=== PATIENT | female | born 1985 | race Caucasian/White ===

== ENCOUNTER 2024-06-15 18:19 | Emergency (ER) | payer OTHER, SELFPAY ==
--- NOTE | ~2024-06-15 | CT_ITS ---
EXAMINATION: CT brain wo con DATE: 06/15/2024 21:12 INDICATION: headache and HTN . TECHNIQUE: Computed tomography (CT) of the head was performed without intravenous contrast. The mA wa s adjusted according to patient size. Iterative reconstruction technique was employed. The dose-lengt h product was 605.33 mGy-cm. COMPARISON: None. FINDINGS: No acute intracranial hemorrhage or extra-axial fluid collection. No hydrocephalus, mass, or herniation. No acute ischemic infarct. Unremarkable dural venous sinus attenuation. No acute osseous abnormality. The aerated spaces are clear. IMPRESSION: No acute intracranial process. Reviewed, dictated and finalized at location K.
[2024-06-15 18:21] VITALS: BP 184/97; PULSE 93; RESP 16; TEMP 37; O2SAT 100
--- OUTSIDE RECORDS SUMMARY | 2024-06-15 18:22 | XMS_ITS | Clinical Summary ---
Author Organization [facility] Address [address] [place] [address] Care Team Providers Care Residential Treatment Counselor Name Role Phone Anibal Nieves MD Primary Care Provider [phone] Marcelo Garza MD Unavailable [phone] Allergies No known active allergies Medications linaCLOtide (LINZESS) 145 mcg capsule Take 1 capsule (145 mcg total) by mouth daily 90 capsule 5 07/23/19 25 Active nitrofurantoin monohydrate (MACROBID) 100 mg capsuleIndicatio ns:Urinary tract infection with hematuria, site unspecified Take 1 capsule (100 mg total) by mouth 2 (two) times a day for 5 days 10 capsule 5 05/29/19 25 Active Problems Problem Noted Date Diagnosed Date Chronic constipation 04/23/2024 Tension headache 05/16/2022 Assessment & Plan (02/20/2024 4:26 PM AEROSPACE ASSEMBLER): Patient now describes her headaches are definitely related to her menstrual cycle. She has discussed this with her abalone processor. Taken pzzo-gek-nkntzim medications with partial success does not remember the name of the medication other was for migraines. Patient was given prescription for sumatriptan in the past me. Patient did not take the medication she had a fear children were take her medicine by accident. Advised this patient specifically get Excedrin migraine [id number]. I emphasized that this patient take the medication at 1st onset of warning of headache this makes a difference on success with the medication if she waits too long medicines less likely to abort the headache. She is to contact me this therapy fails Assessment & Plan (02/06/2023 12:27 PM AEROSPACE ASSEMBLER): Headaches very well controlled patient is tolerating medications no change in therapy Assessment & Plan (05/16/2022 5:41 PM CDT): Patient describes episodic tension headaches with neck tightness stiffness and headache her abalone processor gave her medication she does not recall the name. Sometimes will take Tylenol for the headache with it working approximate 30% of the time. However she only takes the Tylenol after headache is been going on for many hours. She has a fear that she is going to have his significant consequences from taking medications for headaches.. Her that is reasonably safe to take Excedrin migraine and Tylenol for headaches. And she would suffer last if she would take the meds at onset of symptoms. Neurological is l exam completely normal Constipation 01/26/2022 Assessment & Plan (02/20/2024 4:24 PM AEROSPACE ASSEMBLER): Linzess as effective in controlling constipation last prescriptions written by GI Dr. Milly Ahmadi. Assessment & Plan (02/06/2023 12:25 PM AEROSPACE ASSEMBLER): Patient reports constipation well controlled on present medication from GI Assessment & Plan (10/13/2022 8:20 AM CDT): Chronic constipation, can go weeks without BM, was previously taking linzess 72 mcg once a week Used to take daily that helped with constipation but not pain Tried chewable dulcolax, stool softener, MiraLax with no relief Ibuprofen as needed for migraine about a few days a month No known family history of colon cancer, liver disease, inflammatory bowel disease, or other GI pathologies Labs from 05/2021 showed normal CBC CMP and TSH KUB from 02/2022 showed moderate stool burden No previous endoscopies Since last visit had normal CT abdomen pelvis. Often forgets to take Linzess 72 mcg daily. When she does take it feels like it does not make her go everyday and makes her feel more bloated instead. Takes Gas-X with good relief. Plan Chronic idiopathic vs IBS-C with no alarm features. rectal exam showed no findings of pelvic floor dyssynergia Will increase Linzess to 145 mcg daily, strongly encouraged patient to try to remember to take it daily. Assessment & Plan (07/14/2022 2:09 PM CDT): Chronic constipation, can go weeks without BM, currently taking linzess 72 mcg once a week Used to take daily that helped with constipation but not pain Tried chewable dulcolax, stool softener, MiraLax with no relief Ibuprofen as needed for migraine about a few days a month No known family history of colon cancer, liver disease, inflammatory bowel disease, or other GI pathologies Labs from 05/2021 showed normal CBC CMP and TSH KUB from 02/2022 showed moderate stool burden No previous endoscopies Plan Chronic idiopathic vs IBS-C with no alarm features. rectal exam showed no findings of pelvic floor dyssynergia Encouraged patient to start taking Linzess 72 mcg daily given good response previously Assessment & Plan (05/16/2022 5:42 PM CDT): Patient has developed constipation last visit with me she had constipation gave her Linzess 72 mg at work within 2-3 days she is taking medicine periodically in his helped her. Out of samples in his symptoms returned gave her more samples of Linzess 72 mg and a prescription Assessment & Plan (03/03/2022 12:25 PM AEROSPACE ASSEMBLER): Symptoms improved temporarily. Patient strain have bowel movements abdominal discomfort. Abdomen some slight distention suprapubic area. KUB was done is show considerable amount of feces present so shoulder large bladder distention. Concerned about bladder outlet obstruction . Radiologist suggests ultrasound of her heart this is being performed on today's date 03/03/2022. Prior to the knowledge of the changes in the bladder patient was given the medication Linzess 72 mg 1 tablet daily Assessment & Plan (01/26/2022 12:10 PM AEROSPACE ASSEMBLER): Patient started having abdominal bloating lower abdomen pain in September of 2021 she does not have pain without the bloating bloating associated with constipation ever time she has taken Dulcolax it is helped her on some occasions. Once she is a bowel movement all of her symptoms go away. Patient has had no blood in his stool. Nausea no vomiting no changes in bladder function. No weight loss. Patient is a handout from up-to-date today regarding constipation was talks about diet and fiber will softeners and therapy. Have not patient review the information to correct changes in her diet she does not get well he get back in contact with me.. There is a small chance she may need a colonoscopy I doubt at age 36. Her exam is unremarkable than I have dementia in his bloated today the bloating goes constipation in his transient once a week to every 2 weeks. Chronic intractable headache 05/21/2020 Assessment & Plan (02/06/2023 12:26 PM AEROSPACE ASSEMBLER): Headaches very well controlled patient is tolerating medications no change in therapy Assessment & Plan (05/21/2020 5:09 PM CDT): Patient's recurring headaches this is been going on for several years at least 6 years. She uses Tylenol a works about 40% of the time. He is not interested in taking an additional medicine. She has no other symptoms with the headache. Rarely do they stop her from caring out routine activities of daily living.. Headaches are no worse or different than 3 years ago. Encounter for preventive health examination 04/14 Overview (05/24/2020): Added automatically from request for surgery [id number] Assessment & Plan (02/20/2024 4:23 PM AEROSPACE ASSEMBLER): History and physical completed patient's health risk assessment health maintenance reviewed and addressed. Assessment & Plan (02/06/2023 12:29 PM AEROSPACE ASSEMBLER): History and physical completed patient's health risk assessment health maintenance reviewed in addressed. Patient has made significant improvement in the past year with respect to headaches and constipation problems. Smoking 1/2 pack a day or less 06/13/2019 History of gestational hypertension Resolved Problems Problem Noted Date Diagnosed Date Resolved Date Acute non-recurrent maxillary sinusitis 11/15/2023 05/23/2024 Assessment & Plan (11/15/2023 9:27 AM CDT): Acute, symptoms for approx 1 month. Exam findings consistent with maxillary sinusitis. Will Rx doxycycline as instructed. You may take a cough suppressant to calm your cough (Robitussin, delsym, or nyquil). If your cough is productive or you have tight chest congestion with thick mucus- you can use a cough expectorant like Mucinex. Benadryl/Zyrtec/monika can be used to dry up a runny nose or post nasal drip. Sudafed can help with nasal congestion (no more than 5 days due to rebound congestion). Flonase or Nasacort will also help with sinus pressure and nasal drip both. Tylenol/Ibuprofen as needed for pain. Increase fluids (water) Cool mist humidifier at night Use sinus rinses to help flush bacteria and help with congestion. Encouraged honey, marshmallows, gelatin, or chloraseptic to help coat throat. Call with any worsening or persistent symptoms. Epigastric abdominal pain 07/14/2022 Assessment & Plan (10/13/2022 8:17 AM CDT): Epigastric and lower abdominal pain comes out of nowhere, feels like something in there bulging out and moving around Lying on stomach or moving around trigger pain Gets really bad when constipated, better after bm No association with eating Some acid reflux with tums as needed, no dysphagia or odynophagia Since last visit had normal CT A/P, often forgets to take linzess and when she does take it feel like it doesn't always make her go and would just get really bloated instead. Takes gas x as needed with some relief. Spicy foods make her bloating worse. Plan I suspect her epigastric and lower abdominal pain could be related to IBS constipation. Will increase Linzess to 145 mcg daily, and encouraged patient to try to remember to take it daily Assessment & Plan (07/14/2022 2:08 PM CDT): Epigastric and lower abdominal pain comes out of nowhere, feels like something in there bulging out and moving around Lying on stomach or moving around trigger pain Gets really bad when constipated, better after bm No association with eating Some acid reflux with tums as needed, no dysphagia or odynophagia I suspect her epigastric and lower abdominal pain could be related to either abdominal hernia or IBS constipation. Plan Check CT abdomen pelvis Start daily Linzess Lower abdominal pain 07/14/2022 023 Generalized abdominal pain 06/14/2022 1 04/09/2022 Assessment & Plan (06/14/2022 9:07 PM CDT): Symptoms on and off for the last 4 months. Goes back and forth between diarrhea and constipation while taking linzess PRN. When symptoms first started they were predominantly constipation. No melena. KUB 03/02/22 showed moderate constipation, no recent CT abdomen in chart. Diffuse tenderness as noted above. No urinary or BEVEL POLISHER symptoms. Likely needs colonoscopy/EGD, will refer to GI. Encouraged acid reducers, continue linzess PRN. Discussed soluble VS insoluable sources of fiber-avoid nuts, beans, broccoli, cauliflower, green beans, potatoes, and bran. Ok to use Metamucil. Stay hydrated. Educated on natural laxatives such as prunes, apple juice, smooth move tea, coffee, and probiotics. Discussed low acid diet: avoid soda, sugar substitutes, vinegar, pickles, citrus, tomatoes, coffee, and alcohol. Stay hydrated. White coat syndrome with hig h blood pressure but without hypertension 05/16/2022 02/20/2024 Assessment & Plan (05/16/2022 5:39 PM CDT): Patient had a elevated blood pressure recent gynecologic visits. I reviewed this patient's chart with her showing her blood pressure readings going back 5 years approximately 4 readings out of 20 were slightly elevated. At this time no medications indicated all occasions she was having some pain and discomfort when her blood pressure was elevated. Acute cystitis without hematuria 08/04/2021 01/26/2022 Assessment & Plan (08/04/2021 11:34 AM CDT): Patient's symptomatic approximate 6 days. Complains of urgency frequency and dysuria. No fever no chills no flank pain. She does have some suprapubic pain at the time urination. Patient's exam is unremarkable she is in no distress. Vitals excellent. Plans at this time urinalysis start this patient on Bactrim ds. Hospital discharge follow-up 06/03/2021 08/29/2021 Assessment & Plan (06/03/2021 4:17 PM CDT): Patient is seen in emergency room yesterday because of elevated blood pressure . Patient's felt different home and blood pressure begin significant elevations at home but by the her blood pressure at the emergency room down did not sites treatment. She feels well at this time. Patient is concerned that she may be having elevated blood pressure this time her menses. Recommend and monitoring her blood pressure and discuss with catalytic converter operator helper if this turns out to be a problem. She is not on control pills. Essential hypertension 05/21/202001/26 Assessment & Plan (11/26/2020 6:06 PM CDT): Hypertension is always been gestational. Her last deliver close to a year ago. The medication she feels lightheaded insect I discontinued nifedipine 30 mg per day advised patient weight about 2 3 weeks start get some blood pressure readings random mail those into me. Assessment & Plan (05/21/2020 5:12 PM CDT): Blood pressure is well controlled 124/82 I reviewed this patient's chart she has had consistent well controlled blood pressure medications. Patient advised me she had hypertension with on every occasion. Blood pressure with a ventrally go down within 6 weeks. Last her blood pressure is not return to normal. He has been on nifedipine 30 mg daily for several months she has no side effects from the medication.. Patient is given handout sheet from up-to-date today regarding hypertension the medicine is effective and tolerable no change in therapy. Recent laboratory studies from the ER sufficient I do not need to repeat labs today. This patient has had a cardiac workup in the past for nonspecific chest pain including cardiac catheterization as well as an echocardiogram both which were normal. I am recommending a fasting lipid profile is some time in the future. Patient has to contact insurance company regarding coverage. [facility] care 05/12/2020 Overview (05/12/2020): Added automatically from request for surgery [id number] Assessment & Plan (01/26/2022 12:03 PM AEROSPACE ASSEMBLER): History and physical completed patient's health risk assessment health maintenance reviewed in addressed. Patient's only health concerns is constipation please see assessment and plans. Assessment & Plan (05/21/2020 5:07 PM CDT): History and physical completed health risk assessment health maintenance reviewed in addressed patient's chart is reviewed no laboratory studies indicated this time please see assessment and plan Preeclampsia in period 12/19/2019 07/02/2020 GBS (group B Streptococcus c arrier), +RV culture, currently 12/01/2019 12/12/2019 H/O delivery, currently 06/13/2019 01/23/2020 Threatened in early 05/12/2019 10/03/2019 Encounter for sterilization 01/02/2018 05/12/2019 Overview (01/02/2018): Added automatically from request for surgery [id number] Positive GBS test 10/23/2017 11/02/2017 No pathologic diagnosis 10/18/201209/13 Overview (05/17/2016): No diagnosis Vaginal delivery 01/23/2020 38 weeks gestation of 05/12/2019 37 weeks gestation of 01/23/2020 Encounters Date Type Department Care Team Description 06/12/2024 7:38 AM CDT Anesthesia Event [address] [address] Cherelle Villasenor MD Reynolds, Ethan Emerson, MD 06/12/2024 7:30 AM CDT - 06/12/2024 8:00 AM CDT Surgery [address] [address] Mar Ahmadi MD COLON REMOVAL SNARE 06/12/2024 7:04 AM CDT - 06/12/2024 8:44 AM CDT Hospital Encounter [address] [address] Mar Ahmadi MD Chronic constipation Discharge Disposition: Discharge to home or self care 06/10/2024 8:30 AM CDT - 06/10/2024 11:59 AM CDT Emergency [facility] Emergency Department [address] [place] [address] Ravi Winslow MD Other migraine without status migrainosus, intractable (Primary Dx) Discharge Disposition: Discharge to home or self care 05/23/2024 2:00 PM CDT Lab [facility] [address] [facility] [address] [place] [address] Urinary tract infection with hematuria, site unspecified 05/23/2024 1:30 PM CDT Office Visit [facility] [address] [facility] [address] [place] [address] Leyla Sung NP Urinary tract infection with hematuria, site unspecified (Primary Dx) 04/28/[address] [facility] Gastroenterology at [address] [place] [phone] Johnna Ramírez LPN 04/23/2024 2:30 PM CDT Office Visit [facility] Gastroenter[facility] at [address] [place] [phone] Asia Humphrey PA Chronic constipation (Primary Dx) 04/23/[address] [facility] Gastroenter[facility] at [address] [place] [phone] Chichi Maria MA from Last 3 Months Immunizations Immunization Administration Dates Next Due DTP 09/28/1989, 8,03/03/1987,12/31 Hep B, Adolescent or Pediatric 10/02/1996 Influenza, Quadrivalent, Spl it, Preservative Free, Intramuscular 11/04/2017 Influenza, Unspecified 05/23/2024(Deferr ed: Patient Refused),11/13/2022(Deferred: Patient Refused) MMR 11/30/1992,08/18/1986 OPV 09/28/1989, 8,03/03/1987,12/31 Tdap 10/24/2019,08/24/2017 Surgical History Surgery Date Site/Laterality Comments OTHER SURGICAL HISTORY 02/13/2004 - 02/11/2005 : OTHER SURGICAL HISTORY 02/13/2012 - 02/11/2013 : CARDIAC CATHETERIZATION SALPINGECTOMY 06/16/2020 Bilateral COLONOSCOPY 06/12/2024 Medical History Medical History Date Comments Hx Other Medical 2004 ; Outc ome: 5 lb(s) 9 oz Male Hx Other Medical 2017 Hx Other Medical 2012 manag ement; Outcome: Live 4 para 4 Motion sickness Anxiety Migraines History of chicken pox Family History Medical History Relation Name Comments Hypertension Father Tahir Hypertension; Hyperlipidemia Mother Meli Hypertension Mother Meli Relation Name Status Comments Father Tahir Mother Meli Social History Tobacco Use Types Packs/Day Years Used Date Smoking Tobacco: Every Day Cigarettes 0.4 22.3 Started: 02/12/2002 Smokeless Tobacco: Never Tobacco Cessation:Ready to Q uit: Not Asked; Counseling Given: Not Answered Comments:Smoking History Packs/day: 0 Packs Alcohol Use Standard Drinks/Week Comments No 0 (1 standard drink = 0.6 oz pur e alcohol) AUDIT-C Answer Date Recorded Q1: How often do you have a drink containing alcohol? Never 06/12/2024 Q2: How many drinks containi ng alcohol do you have on a typical day when you are drinking? Patient does not drink Q3: How often do you have si x or more drinks on one occasion? Never 06/12/2024 PHQ-2 Answer Date Recorded PHQ-2 Total Score (If total score is 3 or more points, staff should administer the PHQ-9) 0 05/23/2024 Personal Safety Answer Date Recorded Have you ever been in or are you currently in a harmful physical or emotional relationship or is someone making you feel afraid or unsafe? Denies 06/12/2024 Comments No Sex and Gender Information Value Date Recorded Sex Assigned at Not on file Legal Sex Female 7:33 PM AEROSPACE ASSEMBLER Gender Identity Not on file Sexual Orientation Not on file Obstetrics History Para Term AB IAB SAB Ectopic Multiple Livin g Live Births 4 4 2 2 0 0 0 0 0 4 4 Date Outcome GA Total Labor Labor/2nd/3rd Weight Sex Type Anes PTL Lakisha A1 A5 Name Clin 2004 35w 0d 2.523 kg (5 lb 9 oz) M Vag-S pont Epidur al Y Livin g Saran chun Complications:Pre eclampsia 2012 36w 0d 1.984 kg (4 lb 6 oz) M Vag-S pont Epidur al Y Livin g Yohan Complications:Pre eclampsia 2017 Term 38w 1d 2.353 kg (5 lb 3 oz) M Vag-S pont Epidur al N Livin g [place] Complications:Pre eclampsia 2019 Term 37w 3d 1h 22m 0h 40m/0h 05m/0h 37m 2.697 kg (5 lb 15.1 oz) F Vag-S pont Local N Livin g 9 9 SUKHDEEP TRAORE, Rebel Keller MD Complications:Precipitous La bor (<3 hours) Delivery [facility] Last Filed Vital Signs Vital Sign Reading Time Taken Comments Blood Pressure 128/89 06/12/2024 8:37 AM CDT Pulse 76 06/12/2024 8:37 AM CDT Temperature 36.9 C (98.5 F) 06/12/2024 8:37 AM CDT Respiratory Rate 18 06/12/2024 8:37 AM CDT Oxygen Saturation 100% 06/12/2024 8:37 AM CDT Inhaled Oxygen Concentration - - Weight 52.2 kg (115 lb) 06/12/2024 7:12 AM CDT Height 154.9 cm (5' 1 ) 06/12/2024 7:12 AM CDT Body Mass Index 21.73 06/12/2024 7:12 AM CDT Plan of Treatment Health Maintenance Due Date Last Done Comments Pneumococcal vaccine <65 (1 of 2 - PCV) 2004 Influenza Vaccine (Season Ended) 2024 11/04/2017 Regular Well Visit/Exam 18-64 02/18/2025 02/19/2024, 02/06/2023, 05/08/2022, Additional history exists Cervical Cancer Screening 05/08/20252022, 06/13/2019, 04/27/2017, Additional history exists Depression Screening 05/23/2025 05/23/2024, 02/19/2024, 02/08/2024, Additional history exists DTaP/Tdap/Td Vaccine (7 - Td or Tdap) 10/23/2029 10/24/2019, 08/24/2017, 09/28/1989, Additional history exists Hepatitis B Screening Completed 10/02/1996 Hepatitis C Screening Completed 08/12/2019 , 05/17/2017, 04/12/2012 HPV Vaccines Aged Out No longer eligi ble based on patient's age to complete this topic Procedures Procedure Name Priority Date/Time Associated Diagnosis Comments COLON REMOVAL SNARE 06/12/2024 7 :31 AM CDT Chronic constipation COLONOSCOPY 06/12/2024 7:08 AM CDT EGFR STAT 06/10/2024 10:50 AM CDT DIFFERENTIAL AUTO STAT 06/10/2024 10: 50 AM CDT COMPREHENSIVE METABOLIC PANEL STAT 06/10/2024 10:50 AM CDT CBC WITH AUTO DIFFERENTIAL STAT 06/10/2024 10:[address] HEAD WO CONTRAST ED 06/10/2024 1 0:[address] CERVICAL SPINE WO CONTRAST ED 06/10/2024 10:03 AM CDT URINALYSIS AND REFLEX TO MICROSCOPIC AND CULTURE Routine 05/23/2024 1:58 PM CDT Urinary tract infection with hematuria, site unspecified PAP AND HIGH RISK HPV, REFLEX TO GENOTYPING Routine 05/08/2022 11:34 AM CDT Encounter for gynecological examination with abnormal finding HEPATITIS C ANTIBODY Routine 08/12/2019 11:52 AM CDT 11 weeks gestation of from Last 3 Months or Most Recently Relevant to Health Maintenance Results * Colonoscopy (06/12/2024 7:08 AM CDT) Anatomical Region Laterality Modality Other Narrative Procedure Note Tu, Yixi, MD - 06/12/2024 7:08 AM CDT [facility] Patient Name: Marry Lowry Procedure Date: 06/12/2024 7:08 AM Date of : 1985 Admit Type: Outpatient Age: 39 Gender: Female Attending MD: Mar Ahmadi M.D. Room: [facility] ENDOSCOPY ROOM 2 Note Status: Finalized Patient Profile: This is a 39 year old female hx of tobacco use here for colonoscopy to evaluate for chronicconstipation. No family hx of colitis or colon cancer. Procedure: Colonoscopy Indications: This is the patient's first colonoscopy,Constipation Referring MD: Anibal Nieves M.D. Providers: Mar Ahmadi M.D. Impression: - Two 4 to 5 mm polyps in the rectum, removed witha cold snare. Resected and retrieved. - External and internal hemorrhoids. - Tortuous colon. Recommendation: - Patient has a contact number available for emergencies. The signs and symptoms of potential delayed complications were discussed with thepatient. Return to normal activities tomorrow. Written discharge instructions were provided to thepatient. - Discharge patient to home (with escort). - High fiber diet. - Continue present medications. - Await pathology results. - Repeat colonoscopy with 2 day prep forsurveillance based on pathology results. - Return to GI clinic as previously scheduled. Medicines: Monitored Anesthesia Care Complications: No immediate complications. Estimated Blood Loss: Estimated blood loss was minimal. Procedure: Pre-Anesthesia Assessment: - Prior to the procedure, a History and Physicalwas performed, and patient medications and allergieswere reviewed. The patient is competent. The risks and benefits of the procedure and the sedation optionsand risks were discussed with the patient. Allquestions were answered and informed consent was obtained. Patient identification and proposed procedure were verified by the physician, the automobiles salesperson and the oven technician in the endoscopy suite. Mental Status Examination: normal. Prophylactic Antibiotics: The patient does not require prophylactic antibiotics. Prior Anticoagulants: The patient has taken no anticoagulant or antiplatelet agents. Afterreviewing the risks and benefits, the patient was deemed in satisfactory condition to undergo the procedure.The anesthesia plan was to use monitored anesthesiacare (MAC). Immediately prior to administration of medications, the patient was re-assessed foradequacy to receive sedatives. The heart rate, respiratory rate, oxygen saturations, blood pressure, adequacyof pulmonary ventilation, and response to care were monitored throughout the procedure. The physical status of the patient was re-assessed after the procedure. The benefits, risks and alternatives of theprocedure and sedation were discussed and informed consentwas obtained. All questions were answered. Please referto the signed informed consent document in the medical record. The bowel preparation used was Miralax via split dose instruction. The bowel preparation usedwas bisacodyl tablets via split dose instruction. The scope was passed under direct vision. The Pediatric Colonoscope [id number] was introducedthrough the anus and advanced to the the cecum, identifiedby appendiceal orifice and ileocecal valve. The bowel preparation used was Miralax via extended prep with split dose instruction. The colonoscopy wasperformed without difficulty. The patient tolerated the procedure well. The quality of the bowelpreparation was adequate Bowel prep was administered using asplit dose. Findings: The perianal and digital rectal examinations were normal. Two sessile polyps were found in the rectum. The polyps were 4 to 5mm in size. These polyps were removed with a cold snare. Resection and retrieval were complete. External and internal hemorrhoids were found during endoscopy. The colon (entire examined portion) was tortuous. Mar Ahmadi M.D. 06/12/2024 8:17:13 AM Number of Addenda: 0 Note Initiated On: 06/12/2024 7:08 AM Procedure Code(s): --- Professional --- 99317, Colonoscopy, flexible; with removal of tumor(s), polyp(s), or other lesion(s) by snare technique --- Technical --- 44784, Colonoscopy, flexible; with removal of tumor(s), polyp(s), or other lesion(s) by snare technique Diagnosis Code(s): --- Professional --- D12.8, Benign neoplasm of rectum K64.8, Other hemorrhoids K59.00, Constipation, unspecified --- Technical --- D12.8, Benign neoplasm of rectum K64.8, Other hemorrhoids K59.00, Constipation, unspecified CPT copyright 2020 [employer]. All rights reserved. The codes documented in this report are preliminary and upon medical billing coder reviewmay be revised to meet current compliance requirements. Recognized by the [employer] for promoting quality in endoscopy Mar Ahmadi MD ENDOSCOPY PROCEDURES Final Resul t * eGFR (06/10/2024 10:50 AM CDT) eGFR >90 >=60 mL/min/1. 73 m2 Comment: Interpretive Data Reference Interval Normal >/= 90 mL/min/1.73m2 Mildly decreased* 60 - 89 mL/min/1.73m2 Mildly to moderately decreased 45 - 59 mL/min/1.73m2 Moderately to severely decreased 30 - 44 mL/min/1.73m2 Severely decreased 15 - 29 mL/min/1.73m2 Kidney Failure < 15 mL/min/1.73m2 *Relative to young adult level Estimated glomerular filtration rate is determined by the 2020 CKD-EPI equation recommended by the National [employer] (A Unifying Approach to GFR Estimation: Recommendations of the NKF-ASK Task Force on Reassessing the Inclusion of Race in Diagnosing Kidney Disease, JASN 2020). The CKD-EPI equation should not be used for patients with unstable renal function and has not been validated in children and those over 70. Current interpretive data was last reviewed 2020. Blood 06/10/2024 10:5 0 AM CDT 06/10/2024 11:01 AM CDT us Ravi Winslow MD LAB BLOOD ORDERABLES Final Res ult [facility] [place] [address] * Differential, auto (06/10/2024 10:50 AM CDT) Neutrophil abs 6.08 1.50 - 6.50 K/cumm Imm gran abs 0.03 0.00 - 0.10 K/cumm [facility] Lymphocyte abs 2.25 0.80 - 3.30 K/cumm [facility] ([place]) Monocyte abs 0.61 0.20 - 0.80 K/cumm [facility] ([place]) Eosinophil abs 0.15 0.00 - 0.50 K/cumm [facility] ([place]) Basophil abs 0.06 0.00 - 0.10 K/cumm [facility] ([place]) Neutrophil pct 66.3 % [facility] Comment: Interpretive Data Percent cell count reference ranges are not reported, since discordance with absolute values may lead to misinterpretation of CBC data. Current Interpretive Data was last revised on 2017. Imm gran pct 0.3 % [facility] ([place]) Comment: Interpretive Data Percent cell count reference ranges are not reported, since discordance with absolute values may lead to misinterpretation of CBC data. Current Interpretive Data was last revised on 2017. Lymphocyte pct 24.5 % [facility] ([place]) Comment: Interpretive Data Percent cell count reference ranges are not reported, since discordance with absolute values may lead to misinterpretation of CBC data. Current Interpretive Data was last revised on 2017. Monocyte pct 6.6 % [facility] ([place]) Comment: Interpretive Data Percent cell count reference ranges are not reported, since discordance with absolute values may lead to misinterpretation of CBC data. Current Interpretive Data was last revised on 2017. Eosinophil pct 1.6 % [facility] ([place] Comment: Interpretive Data Percent cell count reference ranges are not reported, since discordance with absolute values may lead to misinterpretation of CBC data. Current Interpretive Data was last revised on 2017. Basophil pct 0.7 % [facility] ([place]) Comment: Interpretive Data Percent cell count reference ranges are not reported, since discordance with absolute values may lead to misinterpretation of CBC data. Current Interpretive Data was last revised on 2017. Blood 06/10/2024 10:5 0 AM CDT 06/10/2024 11:01 AM CDT us Ravi Winslow MD LAB BLOOD ORDERABLES Final Res ult [facility] ([place]) [facility] [place] [address] * CBC with auto differential (06/10/2024 10:50 AM CDT) WBC 9.18 3.80 - 9.90 K/cumm Hgb 13.8 11.9 - 15.5 g/dL [facility] Hct 40.7 35.6 - 45.5 % [facility]) Plt 264 150 - 400 K/cumm [facility] ([place]) MPV 11.0 9.1 - 12.3 fL [facility] RBC 4.62 3.90 - 5.20 M/cumm [facility] ([place]) MCV 88.1 81.3 - 96.4 fL [facility] MCH 29.9 27.1 - 33.3 pg [facility] MCHC 33.9 32.3 - 35.7 g/dL [facility] RDW CV 12.5 11.1 - 14.9 % [facility] RDW SD 40.3 35.7 - 48.1 fL [facility]) NRBC abs 0.00 0.00 - 0.01 K/cumm [facility]) Blood 06/10/2024 10:5 0 AM CDT 06/10/2024 11:01 AM CDT us Ravi Winslow MD LAB BLOOD ORDERABLES Final Res ult [facility] [place] [address] * (ABNORMAL) Comprehensive metabolic panel (06/10/2024 10:50 AM CDT) Sodium 139 135 - 145 mmol/L Potassium, pl 4.0 3.3 - 4.9 mmol/L [facility] Chloride 104 97 - 110 mmol/L [facility] CO2 23 22 - 32 mmol/L [facility] Anion gap 12 2 - 15 mmol/L [facility]) BUN 6 6 - 25 mg/dL [facility]) Creatinine 0.46(L) 0.60 - 1.10 mg/dL [facility] Glucose 93 70 - 199 mg/dL [facility] ([place] Comment: Interpretive Data Fasting glucose >/= 126 mg/dl is diagnostic for diabetes. Fasting is defined as no caloric intake for at least 8 hours. Fasting glucose between 100 mg/dl to 125 mg/dl is diagnostic of prediabetes. In a patient with classic symptoms of hyperglycemia or hyperglycemic crisis, a random glucose >/= 200 mg/dl is diagnostic for diabetes. In the absence of unequivocal hyperglycemia, results should be confirmed by repeat testing. The classification and Diagnosis of Diabetes Diabetes Care 202; 46: S19-S40. Current interpretive data was last revised 2022. Calcium 9.1 8.5 - 10.3 mg/dL [facility] Bilirubin, total 0.3 0.1 - 1.2 mg/dL [facility] ([place]) Protein, pl 7.6 6.5 - 8.5 g/dL [facility]) Albumin 4.5 3.5 - 5.0 g/dL [facility]) Alk phos 85 40 - 130 Units/L [facility]) ALT 19 7 - 45 Units/L [facility] AST 17 10 - 45 Units/L [facility] ([place]) Comment:Slightly Hemolyzed S pecimen Blood 06/10/2024 10:5 0 AM CDT 06/10/2024 11:01 AM CDT us Ravi Winslow MD LAB BLOOD ORDERABLES Final Res ult [facility] ([place]) [facility] [place] [address] * CT Cervical Spine WO Contrast (06/10/2024 10:03 AM CDT) Anatomical Region Laterality Modality Spine N/A Computed Tomogra phy 06/10/2024 10:1 9 AM CDT Narrative 06/10/2024 10:22 AM CDT EXAM DESCRIPTION: CT CERVICAL SPINE WO CONTRAST REASON FOR STUDY: Neck pain with radiculopathy Patient is complaining of headaches for 3 days TECHNIQUE: Axial images through the cervical spine with sagittal and coronal reformatted images. Automated exposure control was used as a dose optimization technique for this examination. COMPARISON: None available FINDINGS: ALIGNMENT: Normal. VERTEBRAE: No fracture. Vertebral body heights well-maintained. DISCS: Disc heights well-maintained. HARDWARE: None in the spine. INDIVIDUAL LEVELS: C1-C2: No significant osseous spinal stenosis. C2-C3: No significant osseous spinal stenosis or neural foraminal stenosis. C3-C4: No significant osseous spinal stenosis or neural foraminal stenosis. C4-C5: No significant osseous spinal stenosis or neural foraminal stenosis. C5-C6: No significant osseous spinal stenosis or neural foraminal stenosis. C6-C7: No significant osseous spinal stenosis or neural foraminal stenosis. C7-T1: No significant osseous spinal stenosis or neural foraminal stenosis. UPPER THORACIC: Incompletely imaged. No significant osseous spinal stenosis or osseous neural foraminal stenosis. SKULL BASE: No significant finding. LUNG APICES: No significant abnormality. NECK SOFT TISSUES: No significant abnormality. OTHER: No other significant findings. IMPRESSION: Normal cervical spine CT. THIS IS AN ELECTRONICALLY VERIFIED FINAL REPORT 06/10/2024 10:22 AM - Electronically signed by Jagjit Colon M.D. RB: TERESSA Report ID: [id number] Reading Location: [id number] Procedure Note Jagjit Colon MD - 06/10/2024 EXAM DESCRIPTION: CT CERVICAL SPINE WO CONTRAST REASON FOR STUDY: Neck pain with radiculopathy Patient is complaining of headaches for 3 days TECHNIQUE: Axial images through the cervical spine with sagittal andcoronal reformatted images. Automated exposure control was used as a doseoptimization technique for this examination. COMPARISON: None available FINDINGS: ALIGNMENT: Normal. VERTEBRAE: No fracture. Vertebral body heights well-maintained. DISCS: Disc heights well-maintained. HARDWARE: None in the spine. INDIVIDUAL LEVELS: C1-C2: No significant osseous spinal stenosis. C2-C3: No significant osseous spinal stenosis or neural foraminalstenosis. C3-C4: No significant osseous spinal stenosis or neural foraminalstenosis. C4-C5: No significant osseous spinal stenosis or neural foraminalstenosis. C5-C6: No significant osseous spinal stenosis or neural foraminalstenosis. C6-C7: No significant osseous spinal stenosis or neural foraminalstenosis. C7-T1: No significant osseous spinal stenosis or neural foraminalstenosis. UPPER THORACIC: Incompletely imaged. No significant osseous spinalstenosis or osseous neural foraminal stenosis. SKULL BASE: No significant finding. LUNG APICES: No significant abnormality. NECK SOFT TISSUES: No significant abnormality. OTHER: No other significant findings. IMPRESSION: Normal cervical spine CT. THIS IS AN ELECTRONICALLY VERIFIED FINAL REPORT 06/10/2024 10:22 AM - Electronically signed by Jagjit Colon M.D. RB: TERESSA Report ID: [id number] Reading Location: [id number] Opal Abreu MD IM CT PROCEDURES Final R esult * CT Head WO Contrast (06/10/2024 10:03 AM CDT) Anatomical Region Laterality Modality Head and Neck N/A Computed Tomogra phy 06/10/2024 10:1 7 AM CDT Narrative 06/10/2024 10:19 AM CDT EXAM DESCRIPTION: CT HEAD WO CONTRAST REASON FOR STUDY: Headache, classic migraine Patient is complaining of headaches for 3 days TECHNIQUE: Axial images acquired through the brain without intravenous contrast. Images stored on PACS. Automated exposure control was used as a dose optimization technique for this examination. COMPARISON: None available FINDINGS: BRAIN: No hemorrhage, edema or mass effect. No recent infarct. Normal white matter. EXTRA-AXIAL SPACES: No fluid collections. No masses. CALVARIUM: No fracture. SINUSES/MASTOIDS: No fluid or mucosal thickening. ORBITS: No significant abnormality. OTHER: No other significant abnormality. IMPRESSION: No acute intracranial findings. THIS IS AN ELECTRONICALLY VERIFIED FINAL REPORT 06/10/2024 10:19 AM - Electronically signed by Jagjit Colon M.D. RB: TERESSA Report ID: [id number] Reading Location: [id number] Procedure Note Jagjit Colon MD - 06/10/2024 EXAM DESCRIPTION: CT HEAD WO CONTRAST REASON FOR STUDY: Headache, classic migraine Patient is complaining of headaches for 3 days TECHNIQUE: Axial images acquired through the brain without intravenous contrast. Images stored on PACS. Automated exposure control was used asa dose optimization technique for this examination. COMPARISON: None available FINDINGS: BRAIN: No hemorrhage, edema or mass effect. No recent infarct. Normal white matter. EXTRA-AXIAL SPACES: No fluid collections. No masses. CALVARIUM: No fracture. SINUSES/MASTOIDS: No fluid or mucosal thickening. ORBITS: No significant abnormality. OTHER: No other significant abnormality. IMPRESSION: No acute intracranial findings. THIS IS AN ELECTRONICALLY VERIFIED FINAL REPORT 06/10/2024 10:19 AM - Electronically signed by Jagjit Colon M.D. RB: RB Report ID: [id number] Reading Location: [place] [address] Opal Abreu MD IM CT PROCEDURES Final R esult * Urinalysis reflex to microscopic and culture Urine, clean voided (05/23/2024 1:58 PM CDT) Color, ur Yellow Yellow Comment:Testing performed by : [address], [address] Clarity, ur Clear Clear [facility] Comment:Testing performed by : [address], [address] Specific gravity, ur 1.012 1.003 - 1.030 [facility] Comment:Testing performed by : [address], [address] pH, urine 7.0 [facility] Comment: Interpretive Data U rine pH is affected by diet, medications, systemic acid-base disturbances, and renal tubular function. pH may affect urinary stone formation. For example, urine pH below 6.0 may help reduce the tendency for calcium phosphate stones and pH greater than 6.0 may reduce the tendency for uric acid stone formation. Source: [facility] QA on Request Current Interpretive Data was last revised on 2017 Testing performed by: [address] [address] Protein, ur ql Negative Negative [facility] Comment:Testing performed by : [address], [address] Glucose, ur ql Negative Negative [facility] Comment:Testing performed by : [address], [address] Ketones, ur Negative Negative [facility] Comment:Testing performed by : [address], [address] Bilirubin, ur Negative Negative [facility] Comment:Testing performed by : [address], [address] Blood, ur Negative Negative [facility] Comment:Testing performed by : [address], [address] Urobilinogen, ur <2.0 <2.0 mg/dL [facility] Comment:Testing performed by : [address] [place]., [address] Nitrite, ur Negative Negative [facility] Comment:Testing performed by : [facility], [address] [place] [address]., [address] Leukocyte esterase, ur Negative Negative [facility] Comment:Testing performed by : [facility], [address] [place] [address]., [address] UA reflex comment Reflex conditions for microscopic UA and culture not met. [facility] Comment:Testing performed by : [facility], [address] [place] [address]., [address] Urine, clean voided 05/23/2024 1:58 PM CDT 05/23/2024 5:54 PM CDT Leyla Sung NP LAB MICROBIOLOGY - GENERAL ORDER SARINA Final Result [facility] [address] Department [place] [address] * Pap and High Risk HPV, reflex to Genotyping (05/08/2022 11:34 AM CDT) CLINICAL INFORMATION: [facility] Comment:Routine exam LMP [facility] Comment:04-28-[address] [facility] Comment:NONE GIVEN Prev. Bx [facility] Comment:NONE GIVEN SOURCE: [facility] Comment:Cervix, Endocervix Pap, specimen adequacy [facility] Comment: Satisfactory for evaluation. Endocervical/transformation zone component present. HPV interp [facility] Comment:Negative for intraep ithelial lesion or malignancy. [employer]ep [employer] [facility] Comment: RADHA, CT(ASCP) CT screening location: [place] [address] [place] [address] Comment [facility] [email or web address] [facility] Comment: EXPLANATORY NOTE: The Pap is a screening test for cervical cancer. It is not a diagnostic test and is subject to false negative and false positive results. It is most reliable when a satisfactory sample, regularly obtained, is submitted with relevant clinical findings and history, and when the Pap result is evaluated along with historic and current clinical information. Human papillomavirus DNA, High Risk E6/E7 Not Detected NOT DETECTED [facility] /Jaylon [facility]ENA Comment: Not Detected High Risk HPV types (16,18,31,33,35,39,45,51,52, 56,58,59,66,68) were not detected. Other HPV types which cause anogenital lesions may be present. The significance of the other types of HPV in malignant processes has not been established. Methodology: Real Time PCR Thin prep 05/08/2022 11:3 4 AM CDT 05/09/2022 2:10 AM CDT Marcelo Garza MD LAB CYTOLOGY ORDERABLES Fi nal Result [email or web address] [address] [place] [address] [facility]lon [facility]ly [facility] [address] [facility] [place] [address] * Hepatitis C antibody (08/12/2019 11:52 AM CDT) Hep C Ab Nonreactive Nonreactive [facility] ([place]) Comment: Interpretive Data Nonreactive: Antibodies to HCV not detected. Does NOT exclude the possibility of recent exposure to HCV. Equivocal: Equivocal for HCV antibodies. Supplemental molecular testing will be automatically performed to determine infection status in accordance with current CDC screening recommendations. Reactive: Positive for HCV antibodies. This may represent current or past HCV infection. Supplemental molecular testing will be automatically performed to determine current infection status in accordance with current CDC screening recommendations. Interpretive data was last revised on 2019. Testing performed by: [facility], [address] [place] [address], [place]., [address] Blood specimen (specimen) 08/12/2019 11:52 AM CDT 08/12/2019 6:30 PM CDT Marcelo Garza MD LAB MICROBIOLOGY - GENERAL ORDERABLES Final Result [facility] ([place]) [facility] [place] [address] from Last 3 Months or Most Recently Relevant to Health Maintenance Insurance [facility] MED[facility] Advance Directives For more information, please contact: [phone] * Full Code (Latest Code Status on File) Date Activated Date Inactivated Comments 06/12/2024 7:08 AM 06/12/2024 12:44 PM * Full Code Date Activated Date Inactivated Comments 06/12/2024 7:08 AM 06/12/2024 7:08 AM * Full Code Date Activated Date Inactivated Comments 12/19/2019 9:02 PM 12/21/2019 12:04 AM * Full Code Date Activated Date Inactivated Comments 12/12/2019 11:22 AM 12/14/2019 4:47 PM Full CPR i n case of cardiopulmonary arrest * Full Code Date Activated Date Inactivated Comments 11/02/2017 2:30 PM 11/04/2017 7:26 PM Full CPR in case of cardiopulmonary arrest Care Teams Residential Treatment Counselor Relationship Specialty Start Date End Date Anibal Nieves MD PCP - General Internal Medicine 04/30/20 Marcelo Garza MD [address] [place] [address] [address] LIAS [address] [place] [id number] Sports Athletic Trainer Obstetrics and Gynecology 06/16/20
--- OUTSIDE RECORDS SUMMARY | 2024-06-15 18:22 | XMS_ITS | Referral Summary ---
Author Organization [facility] Address [address] [place] [address] Care Team Providers Care Gang Ripsaw Operator Name Role Phone Anibal Nieves MD Primary Care Provider [phone] Marcelo Garza MD Unavailable [phone] Encounters Date Type Department Care Team Description 06/12/2024 7:30 AM CDT - 06/12/2024 8:00 AM CDT Surgery [address] [address] Mar Ahmadi MD COLON REMOVAL SNARE 06/12/2024 7:38 AM CDT Anesthesia Event [address] [address] Cherelle Villasenor MD Reynolds, Ethan Emerson, MD 06/12/2024 7:04 AM CDT - 06/12/2024 8:44 AM CDT Hospital Encounter [address] [address] Mar Ahmadi MD Chronic constipation Discharge Disposition: Discharge to home or self care 06/10/2024 8:30 AM CDT - 06/10/2024 11:59 AM CDT Emergency [facility] Emergency Department [address] [place] [id number] Ravi Winslow MD Other migraine without status migrainosus, intractable (Primary Dx) Discharge Disposition: Discharge to home or self care 05/23/2024 2:00 PM CDT Lab [facility] OP Lab 1 [facility] [address] [place] [phone] Urinary tract infection with hematuria, site unspecified 05/23/2024 1:30 PM CDT Office Visit [facility] Medical [facility] [address] [place] [address] Leyla Sung NP Urinary tract infection with hematuria, site unspecified (Primary Dx) 04/28/2024 Telephone [facility] Gastroenterology at [address] [place] [phone] Johnna Ramírez LPN 04/23/2024 Telephone [facility] Gastroenterology at [address] [place] [phone] Chichi Maria MA 04/23/2024 2:30 PM CDT Office Visit [facility] G[facility]enterology at [address] [place] [phone] Asia Humphrey PA Chronic constipation (Primary Dx) from Last 3 Months Allergies No known active allergies Medications linaCLOtide [...] 05/16/2022 Assessment & Plan (02/20/2024 4:26 PM INBOUND CUSTOMER SERVICE REPRESENTATIVE): Patient now describes her headaches are definitely related to her menstrual cycle. She has discussed this with her stoner out. Taken bboy-joy-hbqlgsg medications with partial success does not remember the name of the medication other was for migraines. Patient was given prescription for sumatriptan in the past me. Patient did not take the medication she had a fear children were take her medicine by accident. Advised this patient specifically get Excedrin migraine shzv-zhs-[id number]. I emphasized that this patient take the medication at 1st onset of warning of headache this makes a difference on success with the medication if she waits too long medicines less likely to abort the headache. She is to contact me this therapy fails Assessment & Plan (02/06/2023 12:27 PM INBOUND CUSTOMER SERVICE REPRESENTATIVE): Headaches very well controlled patient is tolerating medications no change in therapy Assessment & Plan (05/16/2022 5:41 PM CDT): Patient describes episodic tension headaches with neck tightness stiffness and headache her stoner out gave her medication she does not recall [...] 01/26/2022 Assessment & Plan (02/20/2024 4:24 PM INBOUND CUSTOMER SERVICE REPRESENTATIVE): Linzess as effective in controlling constipation last prescriptions written by GI Dr. Milly Ahmadi. Assessment & Plan (02/06/2023 12:25 PM INBOUND CUSTOMER SERVICE REPRESENTATIVE): Patient reports constipation well controlled on present [...] prescription Assessment & Plan (03/03/2022 12:25 PM INBOUND CUSTOMER SERVICE REPRESENTATIVE): Symptoms improved temporarily. Patient strain have bowel [...] daily Assessment & Plan (01/26/2022 12:10 PM INBOUND CUSTOMER SERVICE REPRESENTATIVE): Patient started having abdominal bloating lower abdomen [...] 05/21/2020 Assessment & Plan (02/06/2023 12:26 PM INBOUND CUSTOMER SERVICE REPRESENTATIVE): Headaches very well controlled patient is tolerating [...] (05/24/2020): Added automatically from request for surgery [id number] Assessment & Plan (02/20/2024 4:23 PM INBOUND CUSTOMER SERVICE REPRESENTATIVE): History and physical completed patient's health risk assessment health maintenance reviewed and addressed. Assessment & Plan (02/06/2023 12:29 PM INBOUND CUSTOMER SERVICE REPRESENTATIVE): History and physical completed patient's health risk [...] tenderness as noted above. No urinary or MANUFACTURERS REPRESENTATIVE symptoms. Likely needs colonoscopy/EGD, will refer to [...] monitoring her blood pressure and discuss with trim line worker if this turns out to be a [...] has to contact insurance company regarding coverage. Preventative health care 05/12/2020 Overview (05/12/2020): Added automatically from request for surgery [id number] Assessment & Plan (01/26/2022 12:03 PM INBOUND CUSTOMER SERVICE REPRESENTATIVE): History and physical completed patient's health risk [...] (01/02/2018): Added automatically from request for surgery [id number] Positive GBS test 10/23/2017 11/02/2017 No pathologic diagnosis 10/18/201209/13 Overview (05/17/2016): No diagnosis Vaginal delivery 01/23/2020 38 weeks gestation of 05/12/2019 37 weeks gestation of 01/23/2020 Immunizations Immunization Administration Dates Next Due DTP 09/28/1989, 8,03/03/1987,12/31 Hep B, Adolescent or Pediatric 10/02/1996 Influenza, Quadrivalent, Spl it, Preservative Free, Intramuscular 11/04/2017 Influenza, Unspecified 05/23/2024(Deferr ed: Patient Refused),11/13/2022(Deferred: Patient Refused) MMR 11/30/1992,08/18/1986 OPV 09/28/1989, 8,03/03/1987,12/31 Tdap 10/24/2019,08/24/2017 Social History Tobacco Use Types Packs/Day Years [...] on file Legal Sex Female 7:33 PM INBOUND CUSTOMER SERVICE REPRESENTATIVE Gender Identity Not on file Sexual Orientation Not on file Last Filed Vital Signs Vital Sign Reading [...] 06/12/2024 7:12 AM CDT Plan of Treatment Not on file Procedures Procedure Name Priority Date/Time Associated Diagnosis [...] Region Laterality Modality Other Narrative Procedure Note Mar Ahmadi MD - 06/12/2024 7:08 AM CDT [facility] Patient Name: Marry Lowry Procedure Date: 06/12/2024 7:08 AM Date of : 1985 Admit Type: Outpatient Age: 39 Gender: Female Attending MD: Mar Ahmadi M.D. Room: [facility] ENDOSCOPY ROOM 2 Note Status: Finalized Patient [...] procedure were verified by the physician, the florist manager and the highway maintenance technician in the endoscopy suite. Mental Status [...] under direct vision. The Pediatric Colonoscope [id number] was introducedthrough the anus and advanced to [...] 7:08 AM Procedure Code(s): --- Professional --- 12633, Colonoscopy, flexible; with removal of tumor(s), polyp(s), or other lesion(s) by snare technique --- Technical --- 12110, Colonoscopy, flexible; with removal of tumor(s), polyp(s), or other lesion(s) by snare technique Diagnosis Code(s): --- Professional --- D12.8, Benign neoplasm of rectum K64.8, Other hemorrhoids K59.00, Constipation, unspecified --- Technical --- D12.8, Benign neoplasm of rectum K64.8, Other hemorrhoids K59.00, Constipation, unspecified CPT copyright 2020 [employer]. All rights reserved. The codes documented in this report are preliminary and upon exhibits curator reviewmay be revised to meet current compliance requirements. Recognized by the [employer] for promoting quality in endoscopy us Mar Ahmadi MD ENDOSCOPY PROCEDURES Final Resul [...] MD LAB BLOOD ORDERABLES Final Res ult [facility] 1 [facility] Department [place] [address] * Differential, auto (06/10/2024 10:50 AM CDT) Neutrophil abs 6.08 1.50 - 6.50 K/cumm Imm gran abs 0.03 0.00 - 0.10 K/cumm [facility] ([place]) Lymphocyte abs 2.25 0.80 - 3.30 K/cumm [facility] ([place]) Monocyte abs 0.61 0.20 - 0.80 K/cumm [facility] ([place]) Eosinophil abs 0.15 0.00 - 0.50 K/cumm [facility] ([place]) Basophil abs 0.06 0.00 - 0.10 K/cumm [facility] ([place]) Neutrophil pct 66.3 % [facility] ([place]) Comment: Interpretive [...] Final Res ult [facility] ([place]) 1 [facility] [employer] [place] [address] * CBC with auto differential (06/10/2024 10:50 [...] LAB BLOOD ORDERABLES Final Res ult [facility] ([place]) 1 [facility] [place] [address] * (ABNORMAL) Comprehensive metabolic panel (06/10/2024 10:50 [...] classification and Diagnosis of Diabetes Diabetes Care 2021; 46: S19-S40. Current interpretive data was last [...] MD LAB BLOOD ORDERABLES Final Res ult [facility] [address] Department [place] [address] * CT Cervical Spine WO Contrast (06/10/2024 [...] Jagjit Colon M.D. RB: TERESSA Report ID: [id number] Reading Location: [id number] Procedure Note Jagjit Colon MD - 06/10/2024 [...] Jagjit Colon M.D. RB: TERESSA Report ID: [id number] Reading Location: [place] [address] Opal Abreu MD IM CT PROCEDURES Final [...] Jagjit Colon M.D. RB: TERESSA Report ID: [id number] Reading Location: [id number] Procedure Note Jagjit Colon MD - 06/10/2024 [...] Jagjit Colon M.D. RB: TERESSA Report ID: [id number] Reading Location: [id number] us Opal Abreu MD IMG CT PROCEDURES Final R esult * Urinalysis reflex to microscopic and culture Urine, clean voided (05/23/2024 1:58 PM CDT) Color, ur Yellow Yellow Comment:Testing performed by : [facility], [address] [place] [address], [place]., [address] Clarity, ur Clear Clear [facility] Comment:Testing performed by : [facility], [address] [place] [address], [place]., [address] Specific gravity, ur 1.012 1.003 - 1.030 CERNER Comment:Testing performed by : [address] [address] pH, urine 7.0 CERNER Comment: Interpretive Data U rine pH is affected by diet, medications, systemic acid-base disturbances, and renal tubular function. pH may affect urinary stone formation. For example, urine pH below 6.0 may help reduce the tendency for calcium phosphate stones and pH greater than 6.0 may reduce the tendency for uric acid stone formation. Source: [facility] [employer] Current Interpretive Data was last revised on 2017 Testing performed by: [address] [address] Protein, ur ql Negative Negative [facility] CH Comment:Testing performed by : [address], [address] Glucose, ur ql Negative Negative [facility] CH Comment:Testing performed by : [address], [address] Ketones, ur Negative Negative [facility] CH Comment:Testing performed by : [address], [address] Bilirubin, ur Negative Negative [facility] CH Comment:Testing performed by : [address], [address] Blood, ur Negative Negative [facility] CH Comment:Testing performed by : [address] [address] Urobilinogen, ur <2.0 <2.0 mg/dL CERNER Comment:Testing performed by : [address], [address] Nitrite, ur Negative Negative [facility] CH Comment:Testing performed by : [address], [address] Leukocyte esterase, ur Negative Negative [facility] CH Comment:Testing performed by : [address], [address] UA reflex comment Reflex conditions for microscopic UA and culture not met. [facility] CH Comment:Testing performed by : [address], [address] Urine, clean voided 05/23/2024 1:58 PM CDT 05/23/2024 5:54 PM CDT Leyla Sung NP LAB MICROBIOLOGY - GENERAL ORDER SARINA Final Result [facility] [place] [address] [address] Department [place] [address] * Pap and High Risk HPV, reflex to Genotyping (05/08/2022 11:34 AM CDT) CLINICAL INFORMATION: [facility] Comment:Routine exam LMP [facility] Comment:04-28-[address] [facility] Comment:NONE GIVEN Prev. Bx [facility] Comment:NONE GIVEN SOURCE: [facility] Comment:Cervix, Endocervix Pap, specimen adequacy [facility] Comment: Satisfactory for evaluation. Endocervical/transformation zone component present. HPV interp [facility] Comment:Negative for intraep ithelial lesion or malignancy. Solar Installation Helper Que [facility] Comment: RADHA, CT(ASCP) CT screening location: [place] [address] [place] [address] [facility] Comment: EXPLANATORY NOTE: The Pap is a [...] High Risk E6/E7 Not Detected NOT DETECTED [employer] /Jaylon CADENA Comment: Not Detected High Risk HPV types (16,18,31,33,35,39,45,51,52, 56,58,59,66,68) were not detected. Other HPV types which cause anogenital lesions may be present. The significance of the other types of HPV in malignant processes has not been established. Methodology: Real Time PCR Thin prep 05/08/2022 11:3 4 AM CDT 05/09/2022 2:10 AM CDT Marcelo Garza MD LAB CYTOLOGY ORDERABLES Fi nal Result [facility] [address] [place] [address] [facility]) [facility] [address] [place] [address] * Hepatitis C antibody (08/12/2019 11:52 AM [...] last revised on 2019. Testing performed by: [facility], [address] [place] [address]., [address] Blood specimen (specimen) 08/12/2019 11:52 AM CDT 08/12/2019 6:30 PM CDT Marcelo Garza MD LAB MICROBIOLOGY - GENERAL ORDERABLES Final Result Performing Organization Address City/[facility] Co de Phone Number [facility] (KELLE) 1 [facility] Department [place] [address] from Last 3 Months or Most Recently Relevant to Health Maintenance Insurance [facility] MEDICAID [facility] Member Subscriber Plan / Payer (Ef fective 2020-Present) Name:Marry Lowry Erica Relation to Subscriber:Self Name:Marry Lowry Payer ID:[id number] (NAIC) Group ID:Not on file Type:MEDICAID RISK OTHER Address: ATTN: CLAIMS DEPT [address] [facility] [place] [phone] [facility] Member Subscriber Plan / Payer (Ef fective 2020-Present) Name:Marry Lowry Erica Relation to Subscriber:Self Name:Marry Lowry Payer ID:[id number] (NAIC) Group ID:Not on file Type:MEDICAID RISK OTHER Address: ATTN: CLAIMS DEPT [address] [place] [id number] Advance Directives For more information, please contact: [phone] * Full Code (Latest Code Status on [...] in case of cardiopulmonary arrest Care Teams Gang Ripsaw Operator Relationship Specialty Start Date End Date Anibal Nieves MD PCP - General Internal Medicine 04/30/20 Marcelo Garza MD [address] [place] [address] DR LISA [address] [place] [address] Swing Driver Obstetrics and Gynecology 06/16/20
[2024-06-15 19:42] VITALS: BP 166/95; PULSE 79; RESP 16; O2SAT 97
[2024-06-15 20:25] LABS: Basophils Absolute Auto 0.1 K/mm3 (0.0-0.1); Basophils Percent Auto 0.6 % (0.2-1.2); Eosinophils Absolute Auto 0.5 K/mm3 (0-0.3); Eosinophils Percent Auto 4.3 % (0-4.4); Hematocrit 38.1 % (37.0-47.0); Hemoglobin 12.2 g/dL (12.0-15.0); Immature Granulocyte Absolute 0.02 K/mm3 (0.00-0.031); Immature Granulocyte Percent A 0.2 % (0-0.5); Lymphocytes Absolute Auto 3.15 K/mm3 (0.9-3.2); Lymphocytes Percent Auto 30.3 % (18.3-44.2); Mean Corpuscular Hemoglobin 29.1 pg (26-34); Mean Corpuscular Volume 90.9 fl (80-100); Mean Platelet Volume 11.1 fl (7.4-10.4); Monocytes Absolute Auto 0.7 K/mm3 (0.1-0.6); Monocytes Percent Auto 7.1 % (2.6-8.5); Neutrophils Percent Auto 57.5 % (45.5-73.1); Platelet Count Result 244 k/mm3 (150-375); Red Blood Count 4.19 M/mm3 (4.2-5.4); Red Cell Distribution Width 12.8 % (11.5-14.5); White Blood Count 10.4 K/mm3 (4.5-10.0)
--- OUTSIDE RECORDS SUMMARY | 2024-06-15 20:28 | XMS_ITS | Clinical Summary ---
Author Organization [facility] Address [address] [place] [address] Care Team Providers Care Senior Radiation Therapist Name Role Phone Anibal Nieves MD Primary Care Provider [phone] Marcelo Garza MD Unavailable [phone] Allergies No known active allergies Medications linaCLOtide [...] 05/16/2022 Assessment & Plan (02/20/2024 4:26 PM MAINFRAME SYSTEMS ADMINISTRATOR): Patient now describes her headaches are definitely related to her menstrual cycle. She has discussed this with her shoe salesman. Taken hcyl-ewp-wizoear medications with partial success does not remember the name of the medication other was for migraines. Patient was given prescription for sumatriptan in the past me. Patient did not take the medication she had a fear children were take her medicine by accident. Advised this patient specifically get Excedrin migraine [id number]. I emphasized that this patient take the medication at 1st onset of warning of headache this makes a difference on success with the medication if she waits too long medicines less likely to abort the headache. She is to contact me this therapy fails Assessment & Plan (02/06/2023 12:27 PM MAINFRAME SYSTEMS ADMINISTRATOR): Headaches very well controlled patient is tolerating medications no change in therapy Assessment & Plan (05/16/2022 5:41 PM CDT): Patient describes episodic tension headaches with neck tightness stiffness and headache her shoe salesman gave her medication she does not recall [...] 01/26/2022 Assessment & Plan (02/20/2024 4:24 PM MAINFRAME SYSTEMS ADMINISTRATOR): Linzess as effective in controlling constipation last prescriptions written by GI Dr. Milly Ahmadi. Assessment & Plan (02/06/2023 12:25 PM MAINFRAME SYSTEMS ADMINISTRATOR): Patient reports constipation well controlled on present [...] prescription Assessment & Plan (03/03/2022 12:25 PM MAINFRAME SYSTEMS ADMINISTRATOR): Symptoms improved temporarily. Patient strain have bowel [...] daily Assessment & Plan (01/26/2022 12:10 PM MAINFRAME SYSTEMS ADMINISTRATOR): Patient started having abdominal bloating lower abdomen [...] 05/21/2020 Assessment & Plan (02/06/2023 12:26 PM MAINFRAME SYSTEMS ADMINISTRATOR): Headaches very well controlled patient is tolerating [...] (05/24/2020): Added automatically from request for surgery [id number] Assessment & Plan (02/20/2024 4:23 PM MAINFRAME SYSTEMS ADMINISTRATOR): History and physical completed patient's health risk assessment health maintenance reviewed and addressed. Assessment & Plan (02/06/2023 12:29 PM MAINFRAME SYSTEMS ADMINISTRATOR): History and physical completed patient's health risk [...] tenderness as noted above. No urinary or [employer] symptoms. Likely needs colonoscopy/EGD, will refer to [...] monitoring her blood pressure and discuss with sample processor if this turns out to be a [...] has to contact insurance company regarding coverage. [facility] care 05/12/2020 Overview (05/12/2020): Added automatically from request for surgery [id number] Assessment & Plan (01/26/2022 12:03 PM MAINFRAME SYSTEMS ADMINISTRATOR): History and physical completed patient's health risk [...] (01/02/2018): Added automatically from request for surgery [id number] Positive GBS test 10/23/2017 11/02/2017 No pathologic diagnosis 10/18/201209/13 Overview (05/17/2016): No diagnosis Vaginal delivery 01/23/2020 38 weeks gestation of 05/12/2019 37 weeks gestation of 01/23/2020 Encounters Date Type Department Care Team Description 06/12/2024 7:38 AM CDT Anesthesia Event [address] [address] Cherelle Villasenor MD Reynolds, Ethan Emerson, MD 06/12/2024 7:30 AM CDT - 06/12/2024 8:00 AM CDT Surgery [address] [address] Mar Ahmadi MD COLON REMOVAL SNARE 06/12/2024 7:04 AM CDT - 06/12/2024 8:44 AM CDT Hospital Encounter [address] [address] Mar Ahmadi MD Chronic constipation Discharge Disposition: Discharge to home or self care 06/10/2024 8:30 AM CDT - 06/10/2024 11:59 AM CDT Emergency [facility] Emergency Department [address] [place] [address] Ravi Winslow MD Other migraine without status migrainosus, intractable (Primary Dx) Discharge Disposition: Discharge to home or self care 05/23/2024 2:00 PM CDT Lab [facility] [address] [facility] [address] [place] [address] Urinary tract infection with hematuria, site unspecified 05/23/2024 1:30 PM CDT Office Visit [facility] [address] [facility] [address] [place] [address] Leyla Sung NP Urinary tract infection with hematuria, site unspecified (Primary Dx) 04/28/2024 Telephone [facility] Gastroenterology at [address] [place] [address] Johnna Ramírez LPN 04/23/2024 2:30 PM CDT Office Visit [facility] Gastroenterology at [address] [place] [phone] Asia Humphrey PA Chronic constipation (Primary Dx) 04/23/2024 Telephone [facility] Gastroenterology at [address] [place] [phone] Chichi Maria MA from Last 3 Months [...] on file Legal Sex Female 7:33 PM MAINFRAME SYSTEMS ADMINISTRATOR Gender Identity Not on file Sexual Orientation [...] MD Complications:Precipitous La bor (<3 hours) Delivery Location:[facility]) Last Filed Vital Signs Vital [...] Yixi, MD - 06/12/2024 7:[address] [facility] Patient Name: Marry Lowry Procedure Date: 06/12/2024 7:08 AM Date of : 1985 Admit Type: Outpatient Age: 39 Gender: Female Attending MD: Mar Ahmadi M.D. Room: [facility] ENDOSCOPY ROOM 2 Note [...] procedure were verified by the physician, the drawing press operator and the explosive ordnance technician in the endoscopy suite. Mental Status [...] under direct vision. The Pediatric Colonoscope [id number] was introducedthrough the anus and advanced to [...] 7:08 AM Procedure Code(s): --- Professional --- 96326, Colonoscopy, flexible; with removal of tumor(s), polyp(s), or other lesion(s) by snare technique --- Technical --- 00760, Colonoscopy, flexible; with removal of tumor(s), polyp(s), or other lesion(s) by snare technique Diagnosis Code(s): --- Professional --- D12.8, Benign neoplasm of rectum K64.8, Other hemorrhoids K59.00, Constipation, unspecified --- Technical --- D12.8, Benign neoplasm of rectum K64.8, Other hemorrhoids K59.00, Constipation, unspecified CPT copyright 2020 [employer]. All rights reserved. The codes documented in this report are preliminary and upon house shorer reviewmay be revised to meet current compliance requirements. Recognized by the [employer] for promoting quality [...] LAB BLOOD ORDERABLES Final Res ult [facility] [address] [facility] Department [place] [address] * Differential, auto (06/10/2024 10:50 AM CDT) Neutrophil abs 6.08 1.50 - 6.50 K/cumm Imm gran abs 0.03 0.00 - 0.10 K/cumm [facility] ([place]) Lymphocyte abs 2.25 0.80 - 3.30 K/cumm [facility] Monocyte abs 0.61 0.20 - 0.80 K/cumm [facility] ([place]) Eosinophil abs 0.15 0.00 - 0.50 K/cumm [facility] ([place] Basophil abs 0.06 0.00 - 0.10 K/cumm [facility] ([place]) Neutrophil pct 66.3 % [facility] ([place]) Comment: Interpretive Data Percent cell count reference [...] Final Res ult [facility] ([place] [address] [facility] [place] [address] * CBC with auto differential (06/10/2024 10:50 [...] MD LAB BLOOD ORDERABLES Final Res ult [facility] [address] [facility] Department [place] [address] * (ABNORMAL) Comprehensive metabolic panel (06/10/2024 10:50 [...] Final Res ult [facility] ([place] [address] [facility] Department [place] [address] * CT Cervical Spine WO Contrast (06/10/2024 [...] Jagjit Colon M.D. RB: TERESSA Report ID: [id number] Reading Location: [id number] Procedure Note Jagjit Colon MD - 06/10/2024 [...] Jagjit Colon M.D. RB: TERESSA Report ID: [id number] Reading Location: [id number] Opal Abreu MD IM CT PROCEDURES Final [...] Jagjit Colon M.D. RB: TERESSA Report ID: [id number] Reading Location: [id number] Procedure Note Jagjit Colon MD - 06/10/2024 [...] Jagjit Colon M.D. RB: RB Report ID: [id number] Reading Location: [place] [address] Opal Abreu MD IM CT PROCEDURES Final R esult * Urinalysis reflex to microscopic and culture Urine, clean voided (05/23/2024 1:58 PM CDT) Color, ur Yellow Yellow Comment:Testing performed by : [address], [address] Clarity, ur Clear Clear [facility] Comment:Testing performed by : [address], [address] Specific gravity, ur 1.012 1.003 - 1.030 [facility] Comment:Testing performed by : [address], [address] pH, urine 7.0 [facility] Comment: Interpretive Data U rine pH is affected by diet, medications, systemic acid-base disturbances, and renal tubular function. pH may affect urinary stone formation. For example, urine pH below 6.0 may help reduce the tendency for calcium phosphate stones and pH greater than 6.0 may reduce the tendency for uric acid stone formation. Source: [facility] mxHero Current Interpretive Data was last revised on 2017 Testing performed by: [address] [address] Protein, ur ql Negative Negative [facility] Comment:Testing performed by : [address], [address] Glucose, ur ql Negative Negative [facility] Comment:Testing performed by : [address], [address] Ketones, ur Negative Negative [facility] Comment:Testing performed by : [address], [address] Bilirubin, ur Negative Negative [facility] Comment:Testing performed by : [address], [address] Blood, ur Negative Negative [facility] Comment:Testing performed by : [address], [address] Urobilinogen, ur <2.0 <2.0 mg/dL [facility] Comment:Testing performed by : [address] [place]., [address] Nitrite, ur Negative Negative [facility] Comment:Testing performed by : [facility], [address] [place] [address]., [address] Leukocyte esterase, ur Negative Negative [facility] Comment:Testing performed by : [facility], [address] [place] [address]., [address] UA reflex comment Reflex conditions for microscopic UA and culture not met. [facility] Comment:Testing performed by : [facility], [address] [place] [address]., [address] Urine, clean voided 05/23/2024 1:58 PM CDT 05/23/2024 5:54 PM CDT Leyla Sung NP LAB MICROBIOLOGY - GENERAL ORDER SARINA Final Result [facility] [address] Department [place] [address] * Pap and High Risk HPV, reflex to Genotyping (05/08/2022 11:34 AM CDT) CLINICAL INFORMATION: [facility] Comment:Routine exam LMP [facility] Comment:04-28-22 Previous Pap [facility] Comment:NONE GIVEN Prev. Bx [facility] Comment:NONE GIVEN SOURCE: [facility] Comment:Cervix, Endocervix Pap, specimen adequacy [facility] Comment: Satisfactory for evaluation. Endocervical/transformation zone component present. HPV interp [facility] Comment:Negative for intraep ithelial lesion or malignancy. Computer Systems Technician Que [facility] Comment: RADHA, CT(ASCP) CT screening location: [place] [address] [place] [address] Comment Rust [employer] [facility] Comment: EXPLANATORY NOTE: The Pap is a [...] High Risk E6/E7 Not Detected NOT DETECTED [employer] /Jaylon CADENA Comment: Not Detected High Risk HPV types (16,18,31,33,35,39,45,51,52, 56,58,59,66,68) were not detected. Other HPV types which cause anogenital lesions may be present. The significance of the other types of HPV in malignant processes has not been established. Methodology: Real Time PCR Thin prep 05/08/2022 11:3 4 AM CDT 05/09/2022 2:10 AM CDT Marcelo Garza MD LAB CYTOLOGY ORDERABLES Fi nal Result [facility] [address] [place] [address] [employer]/[facility]lon [facility] [address] [facility] [place] [address] * Hepatitis C antibody (08/12/2019 11:52 AM [...] last revised on 2019. Testing performed by: [facility], [address] [place] [address], [place]., [address] Blood specimen (specimen) 08/12/2019 11:52 AM CDT 08/12/2019 6:30 PM CDT Marcelo Garza MD LAB MICROBIOLOGY - GENERAL ORDERABLES Final Result [facility]) [address] [facility] Department [place] [address] from Last 3 Months or Most Recently Relevant to Health Maintenance Insurance [facility] MEDICAID [facility] Advance Directives For more information, please contact: [phone] * Full Code (Latest Code Status on [...] in case of cardiopulmonary arrest Care Teams Senior Radiation Therapist Relationship Specialty Start Date End Date Anibal Nieves MD PCP - General Internal Medicine 04/30/20 Marcelo Garza MD [address] [place] [address] DR LISA [address] [place] [id number] Injection Molding Process Technician Obstetrics and Gynecology 06/16/20
--- OUTSIDE RECORDS SUMMARY | 2024-06-15 20:28 | XMS_ITS | Referral Summary ---
Author Organization [facility] Address [address] [place] [address] Care Team Providers Care Customer Service Engineer Name Role Phone Anibal Nieves MD Primary Care Provider [phone] Marcelo Garza MD Unavailable [phone] Encounters Date Type Department Care Team Description 06/12/2024 7:30 AM CDT - 06/12/2024 8:00 AM CDT Surgery [address] [address] Mar Ahmadi MD COLON REMOVAL SNARE 06/12/2024 7:38 AM CDT Anesthesia Event [address] [address] Cherelle Villasenor MD Reynolds, Ethan Emerson, MD 06/12/2024 7:04 AM CDT - 06/12/2024 8:44 AM CDT Hospital Encounter [address] [address] Mar Ahmadi MD Chronic constipation Discharge Disposition: Discharge to home or self care 06/10/2024 8:30 AM CDT - 06/10/2024 11:59 AM CDT Emergency [facility] Emergency Department [address] [place] [address] Ravi Winslow MD Other migraine without status migrainosus, intractable (Primary Dx) Discharge Disposition: Discharge to home or self care 05/23/2024 2:00 PM CDT Lab [facility]g [facility] OP Lab 1 [facility] [address] [place] [phone] Urinary tract infection with hematuria, site unspecified 05/23/2024 1:30 PM CDT Office Visit [facility] Medical [facility] [address] [place] [address] Leyla Sung NP Urinary tract infection with hematuria, site unspecified (Primary Dx) 04/28/2024 Telephone [facility] at [address] [place] [phone] Johnna Ramírez LPN 04/23/2024 Telephone [facility] at [address] [place] [phone] Chichi Maria MA 04/23/2024 2:30 PM CDT Office Visit [facility] at [address] [place] [phone] Asia Humphrey PA Chronic constipation (Primary Dx) [...] 05/16/2022 Assessment & Plan (02/20/2024 4:26 PM SLUBBER OPERATOR): Patient now describes her headaches are definitely related to her menstrual cycle. She has discussed this with her clinical laboratory service teacher. Taken [id number] medications with partial success does not remember the name of the medication other was for migraines. Patient was given prescription for sumatriptan in the past me. Patient did not take the medication she had a fear children were take her medicine by accident. Advised this patient specifically get Excedrin migraine [id number]. I emphasized that this patient take the medication at 1st onset of warning of headache this makes a difference on success with the medication if she waits too long medicines less likely to abort the headache. She is to contact me this therapy fails Assessment & Plan (02/06/2023 12:27 PM SLUBBER OPERATOR): Headaches very well controlled patient is tolerating medications no change in therapy Assessment & Plan (05/16/2022 5:41 PM CDT): Patient describes episodic tension headaches with neck tightness stiffness and headache her clinical laboratory service teacher gave her medication she does not recall [...] 01/26/2022 Assessment & Plan (02/20/2024 4:24 PM SLUBBER OPERATOR): Linzess as effective in controlling constipation last prescriptions written by GI Dr. Milly Ahmadi. Assessment & Plan (02/06/2023 12:25 PM SLUBBER OPERATOR): Patient reports constipation well controlled on present [...] prescription Assessment & Plan (03/03/2022 12:25 PM SLUBBER OPERATOR): Symptoms improved temporarily. Patient strain have bowel [...] daily Assessment & Plan (01/26/2022 12:10 PM SLUBBER OPERATOR): Patient started having abdominal bloating lower abdomen [...] 05/21/2020 Assessment & Plan (02/06/2023 12:26 PM SLUBBER OPERATOR): Headaches very well controlled patient is tolerating [...] (05/24/2020): Added automatically from request for surgery [id number] Assessment & Plan (02/20/2024 4:23 PM SLUBBER OPERATOR): History and physical completed patient's health risk assessment health maintenance reviewed and addressed. Assessment & Plan (02/06/2023 12:29 PM SLUBBER OPERATOR): History and physical completed patient's health risk [...] tenderness as noted above. No urinary or DOWEL PIN MAN symptoms. Likely needs colonoscopy/EGD, will refer to [...] monitoring her blood pressure and discuss with real estate investor if this turns out to be a [...] (05/12/2020): Added automatically from request for surgery [id number] Assessment & Plan (01/26/2022 12:03 PM SLUBBER OPERATOR): History and physical completed patient's health risk [...] (01/02/2018): Added automatically from request for surgery [id number] Positive GBS test 10/23/2017 11/02/2017 No pathologic [...] on file Legal Sex Female 7:33 PM SLUBBER OPERATOR Gender Identity Not on file Sexual Orientation [...] Female Attending MD: Mar Ahmadi M.D. Room: [facility] END[facility] 2 Note Status: Finalized Patient [...] procedure were verified by the physician, the facility service manager and the soil technician in the endoscopy suite. Mental Status [...] under direct vision. The Pediatric Colonoscope [id number] was introducedthrough the anus and advanced to [...] 7:08 AM Procedure Code(s): --- Professional --- 25544, Colonoscopy, flexible; with removal of tumor(s), polyp(s), or other lesion(s) by snare technique --- Technical --- 41971, Colonoscopy, flexible; with removal of tumor(s), polyp(s), or other lesion(s) by snare technique Diagnosis Code(s): --- Professional --- D12.8, Benign neoplasm of rectum K64.8, Other hemorrhoids K59.00, Constipation, unspecified --- Technical --- D12.8, Benign neoplasm of rectum K64.8, Other hemorrhoids K59.00, Constipation, unspecified CPT copyright 2020 [employer]. All rights reserved. The codes documented in this report are preliminary and upon medical biller coder reviewmay be revised to meet current compliance requirements. Recognized by the [employer] for promoting quality [...] BLOOD ORDERABLES Final Res ult [facility] [address] [facility] Department [place] [address] * Differential, auto (06/10/2024 10:50 [...] Final Res ult [facility] (KELLE) 1 [facility] [place] [address] * CBC with auto differential (06/10/2024 10:50 [...] Final Res ult [facility] (KELLE) 1 [facility] [place] [address] * (ABNORMAL) Comprehensive metabolic panel (06/10/2024 10:50 [...] MD LAB BLOOD ORDERABLES Final Res [facility] [address] [place] [address] * CT Cervical Spine WO Contrast (06/10/2024 [...] Jagjit Colon M.D. RB: TERESSA Report ID: [id number] Reading Location: [id number] Procedure Note Jagjit Colon MD - 06/10/2024 [...] Jagjit Colon M.D. RB: TERESSA Report ID: [id number] Reading Location: [place] [address] Opal Abreu MD IM CT PROCEDURES Final [...] Jagjit Colon M.D. RB: TERESSA Report ID: [id number] Reading Location: [id number] Procedure Note Jagjit Colon MD - 06/10/2024 [...] Jagjit Colon M.D. RB: TERESSA Report ID: [id number] Reading Location: [id number] us Opal Abreu MD IMG CT PROCEDURES Final R esult * Urinalysis reflex to microscopic and culture Urine, clean voided (05/23/2024 1:58 PM CDT) Color, ur Yellow Yellow Comment:Testing performed by : [facility], [address] [place] [address], [place]., [address] Clarity, ur Clear Clear [facility]IAMS Comment:Testing performed by : [facility], [address] [place] [address], [place]., [address] Specific gravity, ur 1.012 1.003 - 1.030 CERNER Comment:Testing performed by : [address] [address] pH, urine 7.0 CERNER Comment: Interpretive Data U rine pH is affected by diet, medications, systemic acid-base disturbances, and renal tubular function. pH may affect urinary stone formation. For example, urine pH below 6.0 may help reduce the tendency for calcium phosphate stones and pH greater than 6.0 may reduce the tendency for uric acid stone formation. Source: [facility] [employer] Current Interpretive Data was last revised on 2017 Testing performed by: [address] [address] Protein, ur ql Negative Negative CERNER CH Comment:Testing performed by : [address], [address] Glucose, ur ql Negative Negative CERNER CH Comment:Testing performed by : [address], [address] Ketones, ur Negative Negative CERNER CH Comment:Testing performed by : [address], [address] Bilirubin, ur Negative Negative CERNER CH Comment:Testing performed by : [address], [address] Blood, ur Negative Negative CERNER CH Comment:Testing performed by : [address] [address] Urobilinogen, ur <2.0 <2.0 mg/dL CERNER Comment:Testing performed by : [address], [address] Nitrite, ur Negative Negative CERNER CH Comment:Testing performed by : [address], [address] Leukocyte esterase, ur Negative Negative CERNER CH Comment:Testing performed by : [address], [address] UA reflex comment Reflex conditions for microscopic UA and culture not met. CERNER CH Comment:Testing performed by : [address], [address] Urine, clean voided 05/23/2024 1:58 PM CDT 05/23/2024 5:54 PM CDT Leyla Sung NP LAB MICROBIOLOGY - GENERAL ORDER SARINA Final Result [facility] [address] [address] [place] [address] * Pap and High Risk HPV, reflex to Genotyping (05/08/2022 11:34 AM CDT) CLINICAL INFORMATION: [facility] Comment:Routine exam LMP [facility] Comment:04-28-22 Previous Pap [facility] Comment:NONE GIVEN Prev. Bx [facility] Comment:NONE GIVEN SOURCE: [facility] Comment:Cervix, Endocervix Pap, specimen adequacy [facility] Comment: Satisfactory for evaluation. Endocervical/transformation zone component present. HPV interp [facility] Comment:Negative for intraep ithelial lesion or malignancy. Computer Programmer [facility] Comment: RADHA, CT(ASCP) CT screening location: [place] [address] [place] [address] Comment [facility] Comment: EXPLANATORY NOTE: The Pap is a [...] High Risk E6/E7 Not Detected NOT DETECTED [employer] /Jaylon CADENA Comment: Not Detected High Risk HPV types (16,18,31,33,35,39,45,51,52, 56,58,59,66,68) were not detected. Other HPV types which cause anogenital lesions may be present. The significance of the other types of HPV in malignant processes has not been established. Methodology: Real Time PCR Thin prep 05/08/2022 11:3 4 AM CDT 05/09/2022 2:10 AM CDT Marcelo Garza MD LAB CYTOLOGY ORDERABLES Fi nal Result [facility] [address] [place] [address] [employer] [facility] [address] [place] [address] * Hepatitis C antibody (08/12/2019 11:52 AM [...] revised on 2019. Testing performed by: [facility], [address] [place] [address]., [address] Blood specimen (specimen) 08/12/2019 11:52 AM CDT 08/12/2019 6:30 PM CDT Marcelo Garza MD LAB MICROBIOLOGY - GENERAL ORDERABLES Final Result Performing Organization Address City/[facility] Co de Phone Number [facility] (KELLE) 1 [facility] [place] [address] from Last 3 Months or Most Recently Relevant to Health Maintenance Insurance [facility] MEDICAID [facility] Member Subscriber Plan / Payer (Ef fective 2020-Present) Name:Marry Lowry [place] Relation to Subscriber:Self Name:Marry Lowry Payer ID:[id number] (NAIC) Group ID:Not on file Type:MEDICAID RISK OTHER Address: ATTN: CLAIMS DEPT [address] [facility] [place] [id number] [facility] Member Subscriber Plan / Payer (Ef fective 2020-Present) Name:Marry Lowry [place] Relation to Subscriber:Self Name:Marry Lowry Payer ID:[id number] (NAIC) Group ID:Not on file Type:MEDICAID RISK OTHER Address: ATTN: CLAIMS DEPT [address] [place] [address] Advance Directives For more information, please contact: [phone] * Full Code (Latest Code Status on [...] in case of cardiopulmonary arrest Care Teams Customer Service Engineer Relationship Specialty Start Date End Date Anibal Nieves MD PCP - General Internal Medicine 04/30/20 Marcelo Garza MD [address] [place] [address] [address] LISA [address] [place] [address] Pay Agent Obstetrics and Gynecology 06/16/20
[2024-06-15 20:29] LABS: Add Urine Microscopic? YES; Appearance Urine Turbid (Clear); Bacteria Urine None Seen /hpf; Bilirubin Urine Negative (Negative); Blood Urine Negative (Negative); Color Urine Yellow (Yellow); Glucose Urine UA Negative (Negative); Ketones Urine Negative (Negative); Leukocyte Esterase Ur Negative LEU/UL (Negative); Nitrate Urine Negative (Negative); Non Pathogenic Casts 0-2; Protein Urine Negative (Negative); RBC Urine 0-2 /hpf (0-2); Specific Grav Ur 1.018 (1.001-1.035); Squamous Epithelial Cell Urine None Seen /hpf (Few); Urobilinogen Urine 0.2 mg/dL (<2.0); WBC Urine 0-5 /hpf (0-3); pH Urine 7.5 (5.0-9.0)
[2024-06-15 20:36] LABS: Alanine Aminotransferase 19 U/L (6-35); Albumin Level 4.4 g/dL (3.5-5.1); Alkaline Phosphatase 89 U/L (38-126); Anion Gap 7 mmol/L (4-12); Aspartate Amino Transferase 21 U/L (14-36); Bilirubin,Total 0.2 mg/dL (0.2-1.3); Blood Urea Nitrogen 16 mg/dL (7-17); Calcium 8.8 mg/dL (8.4-10.2); Carbon Dioxide 28 mmol/L (22-30); Chloride 103 mmol/L (98-107); Estimated CRCL calculation 77 ml/min; Estimated Glomerular Filt Rate > 60; Glucose 87 mg/dL (65-110); Lactic Acid Reflex 0.7 mmol/L (0.7-2.0); Partial Thromboplastin Time 30.9 Seconds (22.3-36.8); Potassium 3.7 mmol/L (3.4-5.0); Prothrombin Time 13.2 Seconds (11.1-14.7); Sodium 138 mmol/L (137-145)
[2024-06-15] MEDS: hydrALAZINE HCL 20 MG/ML VIAL 10 MG IV PUSH (20:40)
--- NOTE | 2024-06-15 20:48 | ED_ITS ---
HPI - General Adult General Chief complaint: Recheck/Abnormal Lab/Rx Stated complaint: high blood pressure Time Seen by Provider: 06/15/24 19:51 History of Present Illness HPI narrative: 39-year-old female presents emergency department for evaluation for sinus pressure and congestion with associated headache. Patient was also found to have hypertension today. Patient has no prior history of high blood pressure. Patient states for the last few days she has had increased sinus congestion and pressure. Patient reports that she did have a headache earlier today and she felt a release the pressure in her sinuses and the headache resolved. Patient did check her blood pressure and was found to be elevated and patient's blood pressure was elevated at time of arrival to the emergency department. Patient denies any chest pain or shortness of breath. Patient states headache as resolved. Related Data Allergies Allergy/AdvReac Type Severity Reaction Status Date / Time No Known Allergies Allergy Verified 06/15/24 18:22 Review of Systems 2 Review of Systems: All systems reviewed & are unremarkable except as noted in HPI and below PMFSH Social History Social History Alcohol intake: current Exam 2 Narrative: APPEARANCE: Well appearing, no pain, no distress, well-nourished. HEAD: normocephalic, atraumatic. EYES: PERRLA/EOMI, conjunctivae clear. NOSE: Normal no drainage EARS:TMS clear with good light reflex. THROAT: Pharynx clear, no exudate. NECK: Supple. No adenopathy, no masses. RESPIRATORY: Airway patent, respirations nonlabored. Clear to auscultation bilaterally, no rales, rhonchi, wheezing. CARDIOVASCULAR: Regular rate and rhythm without murmurs rubs or gallops. ABDOMINAL: Soft, nontender, nondistended, normal bowel sounds MUSCULOSKELETAL: Moves all extremities. Strength/ROM intact, No edema, No calf tenderness. NEURO: Alert. Cranial nerves II through XII intact. Good gait. Good coordination SKIN: Warm, dry. Normal Color Course Vital Signs Vital signs: Vital Signs Temperature 98.6 F 06/15/24 18:21 Pulse Rate 93 06/15/24 18:21 Respiratory Rate 16 06/15/24 18:21 Blood Pressure 184/97 H 06/15/24 18:21 Pulse Oximetry 100 06/15/24 18:21 Oxygen Delivery Room Air 06/15/24 18:21 Temperature 98.2 F 06/15/24 22:27 Pulse Rate 100 06/15/24 22:27 Respiratory Rate 16 06/15/24 22:27 Blood Pressure 136/85 06/15/24 22:27 Pulse Oximetry 100 06/15/24 22:27 Oxygen Delivery Room Air 06/15/24 18:21 Medical Decision Making MDM Narrative Medical decision making narrative: 39-year-old female presented emergency department for evaluation for elevated blood pressure. Patient is currently afebrile but does have a leukocytosis of 10.4 hemoglobin of 12.2. INR is 1.0. Patient has no acute abnormalities on her CMP with normal lactic acid and normal kidney function, patient has no protein in her urine. Head CT was negative. Patient was negative for influenza RSV and for COVID. Patient was treated with a single dose of IV hydralazine and patient's blood pressure has remained within normal limits. Was advised to stop taking decongestants and hehv-viw-zshvkch cough suppressants and to increase her water intake. Patient will also have close follow-up with her primary care physician. All questions concerns were addressed. Differential Diagnosis Differential Diagnosis: Hypertension, COVID, RSV, influenza a, pneumonia, subdural hematoma, subarachnoid hemorrhage, UTI, and organ injury Vital Signs Vital Signs: Vital Signs Temperature 98.6 F 06/15/24 18:21 Pulse Rate 93 06/15/24 18:21 Respiratory Rate 16 06/15/24 18:21 Blood Pressure 184/97 H 06/15/24 18:21 Pulse Oximetry 100 06/15/24 18:21 Oxygen Delivery Room Air 06/15/24 18:21 Temperature 98.2 F 06/15/24 22:27 Pulse Rate 100 06/15/24 22:27 Respiratory Rate 16 06/15/24 22:27 Blood Pressure 136/85 06/15/24 22:27 Pulse Oximetry 100 06/15/24 22:27 Oxygen Delivery Room Air 06/15/24 18:21 Lab Data Lab results reviewed: Yes I reviewed the patient's lab results. 06/15/24 20:17 06/15/24 20:17 Labs: Lab Results 06/15/24 Range/Units 20:17 WBC 10.4 H (4.5-10.0) K/mm3 RBC 4.19 L (4.2-5.4) M/mm3 Hgb 12.2 (12.0-15.0) g/dL Hct 38.1 (37.0-47.0) % MCV 90.9 (80-100) fl MCH 29.1 (26-34) pg MCHC 32.0 (32-36) g/dl RDW 12.8 (11.5-14.5) % Plt Count 244 (150-375) k/mm3 MPV 11.1 H (7.4-10.4) fl Immature Gran % (Auto) 0.2 (0-0.5) % Neut % (Auto) 57.5 (45.5-73.1) % Lymph % (Auto) 30.3 (18.3-44.2) % Roberts % (Auto) 7.1 (2.6-8.5) % Eos % (Auto) 4.3 (0-4.4) % Baso % (Auto) 0.6 (0.2-1.2) % Lymph # (Auto) 3.15 (0.9-3.2) K/mm3 Roberts # (Auto) 0.7 H (0.1-0.6) K/mm3 Eos # (Auto) 0.5 H (0-0.3) K/mm3 Baso # (Auto) 0.1 (0.0-0.1) K/mm3 Abs Immat Gran (auto) 0.02 (0.00-0.031) K/mm3 Absolute Neuts (auto) 6.0 (1.3-6.7) K/mm3 Absolute Nucleated RBC 0.000 (0.0-0.012) K/mm3 Nucleated RBC % 0.0 (0.0-0.2) % PT 13.2 (11.1-14.7) Seconds INR 1.0 APTT 30.9 (22.3-36.8) Seconds Sodium 138 (137-145) mmol/L Potassium 3.7 (3.4-5.0) mmol/L Chloride 103 (98-107) mmol/L Carbon Dioxide 28 (22-30) mmol/L Anion Gap 7 (4-12) mmol/L BUN 16 (7-17) mg/dL Creatinine 0.67 L (0.7-1.0) mg/dL Estim Creat Clear Calc 77 ml/min Estimated GFR > 60 (59 - ) Glucose 87 (65-110) mg/dL Lactic Acid 0.7 (0.7-2.0) mmol/L Calcium 8.8 (8.4-10.2) mg/dL Total Bilirubin 0.2 (0.2-1.3) mg/dL AST 21 (14-36) U/L ALT 19 (6-35) U/L Alkaline Phosphatase 89 (38-126) U/L Total Protein 7.0 (6.3-8.2) g/dL Albumin 4.4 (3.5-5.1) g/dL Urine Color Yellow (Yellow) Urine Appearance Turbid H (Clear) Urine pH 7.5 (5.0-9.0) Ur Specific [place] 1.018 (1.001-1.035) Urine Protein Negative (Negative) mg/dL Urine Glucose (UA) Negative (Negative) mg/dL Urine Ketones Negative (Negative) mg/dL Ur Blood (Man) Negative (Negative) Urine Nitrate Negative (Negative) Urine Bilirubin Negative (Negative) Urine Urobilinogen 0.2 (<2.0) mg/dL Leukocyte Esterase Rfl Negative (Negative) CLAY/UL Urine RBC 0-2 (0-2) /hpf Urine WBC 0-5 (0-3) /hpf Ur Squamous Epith Cells None seen (Few) /hpf Urine Bacteria None seen /hpf Urine Casts 0-2 Influenza A (RT-PCR) Negative (Negative) Influenza B (RT-PCR) Negative (Negative) RSV (RT-PCR) Negative (Negative) SARS-CoV-2 RNA (RT-PCR) Negative (Negative) Imaging Data Radiologist's impression: Impressions Head CT 06/15/24 21:21 IMPRESSION: No acute intracranial process. Discharge Plan Discharge Clinical Impression: Hypertension, Headache Patient Disposition: Home Condition: Stable Instructions: Antibiotic Form, Hypertension (ED) Additional Instructions: Follow a low-sodium diet. Drink plenty of water. Avoid taking uoxf-lqa-vwfqcsn decongestants and cough suppressants. Check your blood pressure once daily and keep a record of this for your primary care physician. Close follow-up with your primary care physician. If you have any worsening symptoms or if you have any questions or concerns then please call or return to the emergency department. Patient Language: [place] Citizen Follow-up/Referrals: Lizbeth,Anibal Locke MD [Primary Care Provider] -
[2024-06-15 21:02] LABS: Influenza A QL RT-PCR Negative (Negative); Influenza B QL RT-PCR Negative (Negative); RSV RNA, RT-PCR Negative (Negative); SARS-CoV-2 RNA PCR Negative (Negative)
[2024-06-15 22:19] VITALS: BP 134/85; PULSE 93; RESP 16; O2SAT 98
[2024-06-15 22:27] VITALS: BP 136/85; PULSE 100; RESP 16; TEMP 36.8; O2SAT 100
== END 2024-06-15 22:40 | disposition home or self-care (01) ==
PROVIDERS: Emergency Provider Emergency Medicine; PCP Internal Medicine
DX: I10 Essential (primary) hypertension (principal); R51.9 Headache, unspecified; Z20.822 Contact with and (suspected) exposure to COVID-19
CPT/HCPCS: 36415; 70450; 80053; 81001; 83605; 85025; 85610; 85730; 87637; 96374; 99284; J0360